=== PATIENT | male | born 1960 | race African-American/Black ===

== ENCOUNTER 2022-03-23 07:36 | Emergency (ER) | payer BC ==
[~2022-03-23] VITALS: Ht 193 cm; Wt 94.5 kg
[2022-03-23 07:48] VITALS: TEMP 98
[2022-03-23] MEDS ORDERED: PRINIVIL20 MG PO (07:51)
[2022-03-23 08:12] LABS: BASO # 0.1 K/mm3 (0.0-0.2); BASO % 0.8 % (0.0-2.0); EOS # 0.1 K/mm3 (0.0-0.7); EOS % 0.9 % (0.0-4.0); GRAN # 4.2 K/mm3 (1.4-6.5); GRAN % 63.7 % (42.2-75.2); HEMATOCRIT 44.6 % (42.0-52.0); LYMPH # 1.6 K/mm3 (1.2-3.4); MEAN CELL VOLUME 83 fl (80.0-100.0); MEAN CORPUSCULAR HEMOGLOBIN 28 pg (27-31); MEAN CORPUSCULAR HGB CONC 34 g/dl (33.0-37.0); MEAN PLATELET VOLUME 10.7 fl (7.4-10.4); MONO # 0.7 K/mm3 (0.1-0.6); MONO % 10.3 % (1.7-9.3); PLATELET COUNT 236 K/mm3 (130-400); RED BLOOD COUNT 5.39 M/mm3 (4.20-5.60); REDCELL DISTRIBUTION WIDTH-CV 13.6 % (11.5-14.5)
[2022-03-23 08:30] LABS: ALANINE AMINOTRANSFERASE 17 U/L (0-55); ALBUMIN 4.4 gm/dL (3.4-4.8); ALKALINE PHOSPHATASE 87 U/L (40-150); ANION GAP 13 mmol/L (7-16); AST,SGOT 21 U/L (5-34); BILIRUBIN,TOTAL 1.3 mg/dL (0.2-1.2); BLOOD UREA NITROGEN 24 mg/dL (8-26); CARBON DIOXIDE 21 mmol/L (23-31); CHLORIDE 102 mmol/L (98-107); CREATINE KINASE 552 U/L (30-200); CREATININE, serum 1.48 mg/dL (0.72-1.25); GLUCOSE 91 mg/dL (70-99); LIPASE 24 U/L (8-78); MAGNESIUM 2.3 mg/dL (1.6-2.6); POTASSIUM 4.4 mmol/L (3.5-4.5); SODIUM 136 mmol/L (136-145); TOTAL PROTEIN 8.3 gm/dL (6.2-8.1)
[2022-03-23 08:51] LABS: TSH w REFLEX 3.441 uIU/mL (0.350-4.940)
[2022-03-23 08:57] LABS: TROPONIN-I < 0.010 ng/mL (0.00-0.033)
[2022-03-23 10:17] LABS: COLLECTION METHOD CLEAN CATCH
[2022-03-23 10:44] LABS: URINE APPEARANCE Clear (CLEAR/HAZY); URINE COLOR Yellow (YELLOW)
[2022-03-23 10:45] LABS: URINE BLOOD TRACE-INTACT (NEGATIVE); URINE GLUCOSE Negative (NEGATIVE); URINE KETONE 2+ (NEGATIVE); URINE NITRATE Negative (NEGATIVE); URINE PROTEIN(semi-quant) Negative (NEGATIVE); URINE UROBILINOGEN 0.2 E.U/dL (0.2-1.0)
[2022-03-23 10:52] LABS: MUCOUS Present (NOT PRESENT); SQUAMOUS EPITHELIAL 0-2 /hpf (0-10); URINE BACTERIA None Seen /hpf (NONE SEEN); URINE RBC 0-2 /hpf (0-2)
[2022-03-23] MEDS ORDERED: ZOFRAN ODT4 MG PO (11:02)
[2022-03-23 11:10] VITALS: BP 139/88; PULSE 65
== END 2022-03-23 11:10 | disposition home or self-care (01) ==
LOC: COL.ER 07:36
PROVIDERS: Emergency Medicine
DX: T67.6XXA Heat fatigue, transient, initial encounter (principal); N17.9 Acute kidney failure, unspecified; I10 Essential (primary) hypertension; Z87.891 Personal history of nicotine dependence; X30.XXXA Exposure to excessive natural heat, initial encounter
CPT/HCPCS: J7120; Q9967